=== PATIENT | male | born 2005 | race Caucasian/White ===

== ENCOUNTER 2025-03-07 15:03 | Emergency (ER) | payer MEDICAID ==
[~2025-03-07] VITALS: Ht 182.9 cm; Wt 100.0 kg
[2025-03-07 15:05] VITALS: O2SAT 98
[2025-03-07] MEDS: LORAZEPAM 1MG TABLET PO SCH (17:04)
[2025-03-07] MEDS: OLANZAPINE 10 MG/VIAL IM SCH (17:04)
[2025-03-07 17:18] LABS: BASOPHILS % 0.4 % (0.0-2.0); EOSINOPHILS % 1.2 % (0.0-5.0); HEMATOCRIT. 43.6 % (42.0-52.0); HEMOGLOBIN. 15.2 g/dL (14.0-18.0); LYMPHOCYTES % 31.2 % (20.0-50.0); MONOCYTES % 8.2 % (2.0-8.0); NEUTROPHILS % 59.0 % (40.0-76.0); RED BLOOD CELL COUNT 5.08 mill/uL (4.7-6.1); RED CELL DISTRIBUTION WIDTH 12.6 % (11.6-14.6)
[2025-03-07 17:23] LABS: *AMPHETAMINES SCREEN URINE NEGATIVE (NEGATIVE); *BARBITURATES SCREEN URINE NEGATIVE (NEGATIVE); *BENZODIAZEPINES SCREEN URINE NEGATIVE (NEGATIVE); *COCAINE SCREEN URINE NEGATIVE (NEGATIVE); CANNABINOID URINE SCREEN NEGATIVE (NEGATIVE); ECSTASY MDMA SCREEN URINE NEGATIVE (NEGATIVE); METHADONE URINE SCREEN NEGATIVE (NEGATIVE); OPIATES URINE SCREEN NEGATIVE (NEGATIVE); PHENCYCLIDINE URINE SCREEN NEGATIVE (NEGATIVE)
[2025-03-07 17:30] LABS: CREATININE 0.7 mg/dL (0.6-1.3)
[2025-03-07 17:31] LABS: ETHANOL BLOOD < 10 mg/dL (<10); UREA NITROGEN BLOOD 9 mg/dL (9-23)
[2025-03-07 17:46] LABS: MEAN PLATELET VOLUME 7.6 fl (7.4-10.4); PLATELET 238 x1000/uL (130-400)
[2025-03-07 19:26] LABS: CLARITY URINE CLEAR (CLEAR); COLOR URINE YELLOW (YELLOW); GLUCOSE URINE NEGATIVE (NEGATIVE); KETONES URINE 2+ (NEGATIVE); LEUKOCYTE ESTERASE URINE NEGATIVE (NEGATIVE); NITRITE URINE NEGATIVE (NEGATIVE); OCCULT BLOOD URINE NEGATIVE (NEGATIVE); PH URINE 6.5 (4.5-8.0); PROTEIN URINE NEGATIVE (NEGATIVE); SPECIFIC GRAVITY URINE 1.024 (1.005-1.030); UROBILINOGEN URINE 1.0 E.U./dL (0.2-1.0)
[2025-03-08 11:58] VITALS: BP 99/55; PULSE 78; RESP 16; TEMP 36.9; O2SAT 96
[2025-03-08] MEDS ORDERED: OLANZAPINE 5MG TABLET ODT PO SCH (21:00)
== END 2025-03-08 12:25 ==
LOC: ER 15:03
DX: F20.0 Paranoid schizophrenia (principal); R41.89 Other symptoms and signs involving cognitive functions and awareness; Z76.0 Encounter for issue of repeat prescription; Z91.148 Patient's other noncompliance with medication regimen for other reason; Z20.822 Contact with and (suspected) exposure to COVID-19
CPT/HCPCS: 80305; 80048; 81003; 80307; 80329; 80320; 85025; 36415; 96372; 99285; 87426; J3490; G0480